=== PATIENT | female | born 1980 | race Caucasian/White ===

== ENCOUNTER 2019-10-21 03:05 | Emergency (ER) | payer OTHER ==
[2019-10-21] MEDS ORDERED: IPRATROPIUM/ALBUTEROL 0.5-2.5 MG/3 ML AMPUL NEB ONE (03:24)
--- NOTE | 2019-10-21 03:43 | ER Document Report ---
ED General - General Chief Complaint: Breathing Difficulty Stated Complaint: DIFFICULTY BREATHING Time Seen by Provider: 10/21/19 03:26 TRAVEL OUTSIDE OF THE [place] IN LAST 30 DAYS: No - HPI Notes: Patient is a 39-year-old female with a history of hypothyroidism, hypertension, who presents the emergency department for evaluation of cough, low-grade fevers, difficulty breathing. She has had cough and congestion for the last 4 days. She states her highest temperature is 99.4. She states has been waking up short of breath, but admits she has sleep apnea, states this may be contributing. She denies any pain. She has had no nausea or vomiting. She is eating and drinking normally. She states this all feels very similar to when she has had bronchitis in the past. - Related Data Allergies/Adverse Reactions: tramadol Allergy (Verified 10/21/19 03:13) Home Medications: Strattera. Lasix. Lisinopril. Methimazole Past Medical History - General Information source: Patient - Social History Smoking Status: Never Smoker Family History: CAD, DM, Hypertension Patient has suicidal ideation: No Patient has homicidal ideation: No - Past Medical History Cardiac Medical History: Reports: Hx Hypertension, Other - Mitral valve prolapse Endocrine Medical History: Reports: Hx Hyperthyroidism Review of Systems - Review of Systems Constitutional: See HPI EENT: See HPI Respiratory: See HPI -: Yes All other systems reviewed and negative Physical Exam - Vital signs Vitals: Temp Pulse BP Pulse Ox 97.8 F 99 133/98 H 99 10/21/19 03:12 10/21/19 03:12 10/21/19 03:12 10/21/19 03:12 - Notes Notes: This is a 39-year-old female who appears her stated age, no acute distress. She is intermittently coughing, it is dry. She is not tachypneic. She is taking a breathing treatment at the time of my evaluation. Vital signs reviewed, please refer to chart. Head is normocephalic, atraumatic. Pupils equal round, reactive to light. Neck is supple without meningismus. Heart is regular rate and rhythm. Lungs are clear to auscultation bilaterally. Abdomen is soft, nontender, normoactive bowel sounds throughout. Extremities without cyanosis, clubbing. Posterior calves are nontender. Peripheral pulses are equal. Skin is warm and dry. Patient is awake, alert, neurological exam is nonfocal. Course - Re-evaluation Re-evalutation: 10/21/19 03:42 Patient presents to the emergency department for evaluation of cough and congestion. She is afebrile. She is not tachypneic. Her heart rate is normal. Her lungs are clear. She is given a DuoNeb. We will also order an influenza swab, chest x-ray. EKG was performed through protocols. Patient is stable at this time, we will continue to monitor. 10/21/19 04:46 Patient feeling improved after the DuoNeb. Her chest x-ray is worrisome for pneumonia. She is given her first dose of doxycycline here. She states she has used an albuterol inhaler in the past, we will give her one from here, as well as a prescription for 1 as well as the doxycycline. She is to follow-up with primary care, return to the emergency department with worsening or new concerning symptoms. - Vital Signs Vital signs: Temp Pulse Resp BP Pulse Ox 97.8 F 99 133/98 H 99 10/21/19 03:12 10/21/19 03:12 10/21/19 03:12 10/21/19 03:12 - Diagnostic Test Radiology reviewed: Reports reviewed Radiology results interpreted by me: 10/21/19 04:48 Chest X-Ray 10/21/19 03:36 IMPRESSION: Right basilar airspace opacity, worrisome for pneumonia. Follow-up recommended copyright 2010 [employer]- All Rights Reserved - EKG Interpretation by Me Additional EKG results interpreted by me: 10/21/19 03:43 Mildly wandering baseline secondary to respiratory artifact. Otherwise sinus mechanism with a rate of 95 bpm. Normal axis and intervals. No acute ST changes concerning for ischemia or infarction. Discharge - Discharge Clinical Impression: Right lower lobe pneumonia Qualifiers: Pneumonia type: due to unspecified organism Qualified Code(s): J18.9 - Pneumonia, unspecified organism Condition: Stable Disposition: HOME, SELF-CARE Instructions: Pneumonia ([facility]) Additional Instructions: Rest, stay well-hydrated. Take all the doxycycline as prescribed. Use albuterol inhaler, 1 to 2 puffs every 6 hours as needed for shortness of breath. Follow-up with your primary care provider next week. You should have a repeat chest x-ray in 2 to 4 weeks to be sure that it is improved. Return to the emergency department with worsening or new concerning symptoms of any sort.
[2019-10-21 04:02] LABS: A TYPE INFLUENZA AG NEGATIVE (NEGATIVE); B INFLUENZA AG NEGATIVE (NEGATIVE)
--- NOTE | 2019-10-21 04:36 | RADIOLOGY REPORT (SQ) ---
EXAM DESCRIPTION: XR CHEST 2 VIEWS COMPLETED DATE/TME: 10/21/2019 03:36 CLINICAL HISTORY: 39 years, Female, cough COMPARISON: 10/16/2017 chest NUMBER OF VIEWS: 2 TECHNIQUE: 2 view chest LIMITATIONS: None. FINDINGS: Heart size is normal. Airspace opacity right lung base worrisome for pneumonia. No pneumothorax IMPRESSION: Right basilar airspace opacity, worrisome for pneumonia. Follow-up recommended copyright 2010 [employer]- All Rights Reserved
[2019-10-21] MEDS ORDERED: DOXYCYCLINE HYCLATE 100 MG TABLET PO ONE (04:38)
[2019-10-21] MEDS ORDERED: ALBUTEROL SULFATE HFA (90 MCG/PUFF) 8 GM MDI (1 MDI/ER DISP) IH PRN (04:43)
[2019-10-21 05:04] VITALS: BP 134/78
--- NOTE | 2019-10-21 07:26 | EKG REPORT ---
SEVERITY:- NORMAL ECG - SINUS RHYTHM : Confirmed by: Richard Guy MD 21-Oct-2019 07:25:24
== END 2019-10-21 05:05 | disposition home or self-care (01) ==
LOC: ER 03:05
DX: J18.9 Pneumonia, unspecified organism (principal); I10 Essential (primary) hypertension; E05.90 Thyrotoxicosis, unspecified without thyrotoxic crisis or storm; Z79.899 Other long term (current) drug therapy
CPT/HCPCS: 93005; 94640; 99285; 87804; 71046; 93010; J3490; J7620